=== PATIENT | male | born 1940 | race Caucasian/White ===

== ENCOUNTER 2016-06-18 18:13 | Observation (INO) | payer MEDICARE, OTHER ==
[~2016-06-18] VITALS: Ht 182.9 cm; Wt 129.2 kg
[2016-06-18] VITALS (8 sets, daily range): BP systolic 144–199; BP diastolic 76–93; PULSE 60–113; RESP 16–19; TEMP 96.6–97.8; O2SAT 94–100
[~2016-06-18 18:13] MED LIST: D32000CA PO; FURO1TAB93 PO; GLIP5 PO; GLUCTAB PO; LANO0.2510 PO; MECL25CH PO; METH500T3 PO; METO50TA PO; SIMV20 PO; TERA10CA3 PO; VENL-39 PO; VENTAER INH; WARF5TAB PO; ZOLP5TAB3 PO
[2016-06-18] MEDS ORDERED: ASPIRIN 81 MG CHEW TAB PO ONE (18:30)
[2016-06-18] MEDS ORDERED: GLIP5TAB8 PO (18:32)
[2016-06-18] MEDS ORDERED: MULT1CAP19 PO (18:32)
[2016-06-18] MEDS ORDERED: WARF-18 PO (18:32)
[2016-06-18] MEDS ORDERED: DIGO0.25 PO (18:32)
[2016-06-18] MEDS ORDERED: METF1000 PO (18:32)
[2016-06-18] MEDS ORDERED: SIMV40TA PO (18:32)
[2016-06-18] MEDS ORDERED: METO100T PO (18:32)
[2016-06-18] MEDS ORDERED: CHOL100025 CHEW (18:32)
[2016-06-18] MEDS ORDERED: WARF-23 PO (18:32)
[2016-06-18] MEDS ORDERED: VENL100T PO (18:32)
--- NOTE | 2016-06-18 18:41 | PD ---
HPI . Left neck pain Chief Complaint: Musculoskeletal Complaint Time Seen by Provider: 18:18 Travel History International Travel<30 days: No Contact w/Intl Traveler<30days: No Traveled to known affect area: No History of Present Illness HPI Patient presents with a three-day history of left neck pain. He states that it is keeping him from sleeping. Pain is exacerbated by movement of his head. Today, it radiated into his chest. He subsequently presented for evaluation following states he is chronically short of breath but is no different today been usual. He has not had any diaphoresis or nausea. PFSH Past Medical History Arthritis: Yes Atrial Fibrillation: Yes High Cholesterol: Yes Congestive Heart Failure: Yes (?) Cerebrovascular Accident: Yes (LFT SIDED DEFICITS) Diabetes: Yes Patient Takes Glucophage: Yes Genitourinary: Yes (BPH) Hypertension: Yes Immunizations Current: Yes Sleep Apnea: Yes (CPAP) Influenza Vaccination: Yes Past Surgical History Thoracic Surgery: Yes (1/3 LEFT LUNG REMOVED) Social History Alcohol Use: Yes (occ.) Tobacco Use: No Substance Use: No Allergies-Medications (Allergen,Severity, Reaction): Coded Allergies: No Known Allergies (Verified , 12/21/15) Reported Meds & Prescriptions Reported Meds & Active Scripts Active Reported Vitamin D3 (Cholecalciferol) 1,000 Unit Chew 1,000 Units CHEW DAILY Icaps Areds 2 (Multiple Vitamins W/ Minerals) 1 Cap Cap 1 Cap PO BID Glipizide 5 Mg Tab 5 Mg PO BIDAC Take 30 minutes before a meal Metoprolol Tartrate 100 Mg Tab 150 Mg PO BID Digoxin 0.25 Mg Tab 0.25 Mg PO DAILY Warfarin 5 Mg Tab 5 Mg PO SUN,SAT,FRI,,MICHAEL,F Warfarin 2.5 Mg Tab 2.5 Mg PO WED Effexor (Venlafaxine HCl) 100 Mg Tab 150 Mg PO DAILY Simvastatin 40 Mg Tab 40 Mg PO HS Metformin (Metformin HCl) 1,000 Mg Tab 1,000 Mg PO BIDPC With meals Review of Systems Except as stated in HPI: all other systems reviewed are Neg General / Constitutional: No: Fever, Chills Eyes: No: Blurred Vision Cardiovascular: Positive: Chest Pain or Discomfort Respiratory: Positive: Shortness of Breath (chronic shortness of breath) Gastrointestinal: No: Nausea, Vomiting Musculoskeletal: Positive: Myalgias Physical Exam Narrative GENERAL: Awake and alert and in no acute distress. SKIN: Warm and dry. HEAD: Atraumatic. Normocephalic. EYES: Pupils equal and round. ENT: No nasal bleeding or discharge. Mucous membranes pink and moist. NECK: Trachea midline. Tender along the left sternocleidomastoid muscle. This reproduces his pain. CARDIOVASCULAR: Irregular rhythm controlled rate. RESPIRATORY: No accessory muscle use. Lungs are clear with full air movement throughout. GASTROINTESTINAL: Abdomen soft, non-tender, nondistended. MUSCULOSKELETAL: No obvious deformities. No edema. NEUROLOGICAL: Awake and alert. No obvious cranial nerve deficits. Motor grossly within normal limits. Normal speech. PSYCHIATRIC: Appropriate mood and affect; insight and judgment normal. Data Data Last Documented VS Vital Signs Date Time Temp Pulse Resp B/P Pulse Ox O2 Delivery O2 Flow Rate FiO2 06/18/16 18:22 99 Room Air 06/18/16 18:16 97.8 60 16 160/88 Orders Basic Metabolic Panel (Bmp) (06/18/16 18:19) Ckmb (Isoenzyme) Profile (06/18/16 18:19) Complete Blood Count With Diff (06/18/16 18:19) Magnesium (Mg) (06/18/16 18:19) Prothrombin Time / Inr (Pt) (06/18/16 18:19) Act Partial Throm Time (Ptt) (06/18/16 18:19) Troponin I (06/18/16 18:19) Chest, Single Ap (06/18/16 18:19) Ecg Monitoring (06/18/16 18:19) Bilateral Bp Monitoring (06/18/16 18:19) Iv Access Insert/Monitor (06/18/16 18:19) Oximetry (06/18/16 18:19) Oxygen Administration (06/18/16 18:19) Aspirin Chew (Aspirin Chew) (06/18/16 18:30) Sodium Chloride 0.9% Flush (Ns Flush) (06/18/16 18:30) MDM Medical Decision Making Medical Screen Exam Complete: Yes Emergency Medical Condition: Yes Interpretation(s) EKG shows atrial fibrillation with no acute change. Differential Diagnosis Differential diagnosis includes musculoskeletal pain, angina, [place] Narrative Course Patient presents with left neck pain. It is most likely musculoskeletal. Pain is reproducible along the left sternocleidomastoid muscle. The care will be turned over to the oncoming physician pending his workup. Diagnosis Primary Impression: Neck pain on left side Winnie Walker MD Jun 18, 2016 18:41
[2016-06-18] MEDS: SODIUM CHLORIDE 0.9% FLUSH 5 ML FLUSH IVF PRN ×2 (18:43→19:15)
[2016-06-18] MEDS ORDERED: ONDANSETRON HCL 4 MG/2 ML VIAL IV PUSH ONE (18:45)
[2016-06-18] MEDS ORDERED: MORPHINE SULFATE 4 MG/ML INJ IV ONE (18:45)
[2016-06-18] MEDS ORDERED: LORazepam 2 MG/ML VIAL IV PUSH ONE (18:45)
[2016-06-18 18:48] LABS: AUTOMATED NEUTROPHIL # 5.4 TH/MM3 (1.8-7.7); BASOPHIL % 0.4 % (0.0-2.0); EOSINOPHIL # 0.2 TH/MM3 (0-0.4); EOSINOPHIL % 2.2 % (0.0-4.0); HEMATOCRIT 43.8 % (39.0-51.0); HEMO FLAGS DIFF FINAL; LYMPH % 20.7 % (9.0-44.0); LYMPHOCYTE # 1.6 TH/MM3 (1.0-4.8); MEAN CELL VOLUME 85.8 FL (80.0-100.0); MEAN CORPUSCULAR HEMOGLOBIN 27.6 PG (27.0-34.0); MEAN CORPUSCULAR HGB CONC 32.2 % (32.0-36.0); MONO % 8.4 % (0.0-8.0); NEUT % 68.3 % (16.0-70.0); PLATELET COUNT 198 TH/MM3 (150-450); RED BLOOD COUNT 5.11 MIL/MM3 (4.50-5.90); RED CELL DISTRIBUTION WIDTH 14.7 % (11.6-17.2); WHITE BLOOD COUNT 7.9 TH/MM3 (4.0-11.0)
[2016-06-18 18:59] LABS: CHLORIDE 106 MEQ/L (98-107); POTASSIUM 3.7 MEQ/L (3.5-5.1); SODIUM (NA) 144 MEQ/L (136-145)
[2016-06-18 19:02] LABS: ANION GAP 8 MEQ/L (5-15); BICARBONATE 29.8 MEQ/L (21.0-32.0); BLOOD UREA NITROGEN 12 MG/DL (7-18); INTERNATIONAL NORMALIZED RATIO 1.6 RATIO; MAGNESIUM 2.4 MG/DL (1.5-2.5); PROTHROMBIN TIME - PATIENT 17.6 SEC (9.8-11.6)
--- NOTE | 2016-06-18 19:05 | PD ---
Physical Exam Date Seen by Provider: Jun 18, 2016 Time Seen by Provider: 19:04 Narrative Accepted transfer of care from Dr. Walker Data Data Last Documented VS Vital Signs Date Time Temp Pulse Resp B/P Pulse Ox O2 Delivery O2 Flow Rate FiO2 06/18/16 19:20 75 18 163/80 95 Room Air 06/18/16 18:16 97.8 Orders Basic Metabolic Panel (Bmp) (06/18/16 18:19) Ckmb (Isoenzyme) Profile (06/18/16 18:19) Complete Blood Count With Diff (06/18/16 18:19) Magnesium (Mg) (06/18/16 18:19) Prothrombin Time / Inr (Pt) (06/18/16 18:19) Act Partial Throm Time (Ptt) (06/18/16 18:19) Troponin I (06/18/16 18:19) Chest, Single Ap (06/18/16 18:19) Ecg Monitoring (06/18/16 18:19) Bilateral Bp Monitoring (06/18/16 18:19) Iv Access Insert/Monitor (06/18/16 18:19) Oximetry (06/18/16 18:19) Oxygen Administration (06/18/16 18:19) Aspirin Chew (Aspirin Chew) (06/18/16 18:30) Sodium Chloride 0.9% Flush (Ns Flush) (06/18/16 18:30) Morphine Inj (Morphine Inj) (06/18/16 18:45) Ondansetron Inj (Zofran Inj) (06/18/16 18:45) Lorazepam Inj (Ativan Inj) (06/18/16 18:45) CKMB (06/18/16 18:43) CKMB% (06/18/16 18:43) Nitroglycerin Sl (Nitrostat Sl) (06/18/16 19:45) Sodium Chlor 0.9% 1000 Ml Inj (Ns 1000 M (06/18/16 19:45) Labs Laboratory Tests Test 06/18/16 18:43 White Blood Count 7.9 TH/MM3 Red Blood Count 5.11 MIL/MM3 Hemoglobin 14.1 GM/DL Hematocrit 43.8 % Mean Corpuscular Volume 85.8 FL Mean Corpuscular Hemoglobin 27.6 PG Mean Corpuscular Hemoglobin 32.2 % Concent Red Cell Distribution Width 14.7 % Platelet Count 198 TH/MM3 Mean Platelet Volume 8.5 FL Neutrophils (%) (Auto) 68.3 % Lymphocytes (%) (Auto) 20.7 % Monocytes (%) (Auto) 8.4 % Eosinophils (%) (Auto) 2.2 % Basophils (%) (Auto) 0.4 % Neutrophils # (Auto) 5.4 TH/MM3 Lymphocytes # (Auto) 1.6 TH/MM3 Monocytes # (Auto) 0.7 TH/MM3 Eosinophils # (Auto) 0.2 TH/MM3 Basophils # (Auto) 0.0 TH/MM3 CBC Comment DIFF FINAL Differential Comment Prothrombin Time 17.6 SEC Prothromb Time International 1.6 RATIO Ratio Activated Partial 31.0 SEC Thromboplast Time Sodium Level 144 MEQ/L Potassium Level 3.7 MEQ/L Chloride Level 106 MEQ/L Carbon Dioxide Level 29.8 MEQ/L Anion Gap 8 MEQ/L Blood Urea Nitrogen 12 MG/DL Creatinine 0.87 MG/DL Estimat Glomerular Filtration 86 ML/MIN Rate Random Glucose 111 MG/DL Calcium Level 9.2 MG/DL Magnesium Level 2.4 MG/DL Total Creatine Kinase 102 U/L Creatine Kinase MB 2.2 NG/ML Troponin I 0.04 NG/ML [facility] Medical Record Reviewed: Yes Supervised Visit with ELTON: No Interpretation(s) EKG: Atrial fibrillation controlled ventricular rate no acute ST elevation Last Impressions Chest X-Ray 06/18/161818 Signed Impressions: Service Date/Time: Saturday, June 18, 2016 19:07 - CONCLUSION: No evidence of acute cardiopulmonary disease. Tarik Nathan MD CBC & BMP Diagram 06/18/16 18:43 Troponin I: 0.04, not elevated INR: 1.6, subtherapeutic Differential Diagnosis Accepted transfer of care from Dr. Walker; please refer to her dictation Narrative Course Accepted transfer of care from Dr. Walker Patient reports that pain in his neck has decreased to 5/10 in intensity down from 10/10 in intensity; Chest pain 5/10 in intensity Physician Communication Physician Communication discussed with Dr Sellers for [facility] NURSE PRN Diagnosis Primary Impression: Chest pain Qualified Code: R07.2 - Precordial pain Additional Impressions: Neck pain on left side History of atrial fibrillation Admitting Information Admitting Physician Requests: Sharda Chawla MD Jun 18, 2016 19:05
[2016-06-18 19:06] LABS: GLOMERULAR FILTRATION RATE 86 ML/MIN (>89)
[2016-06-18 19:09] LABS: CREATINE KINASE 102 U/L (39-308)
[2016-06-18 19:21] LABS: CKMB 2.2 NG/ML (0.5-3.6)
--- NOTE | 2016-06-18 19:23 | RADHPO ---
EXAM DATE/TIME: 06/18/2016 19:07 [facility] COMPARISON: CHEST SINGLE AP, December 21, 2015, 12:42. INDICATIONS : Chest pain for 3 days. MEDICAL HISTORY : Cerebrovascular disease. Congestive heart failure. Diabetes mellitus type 2.Hypertension. SURGICAL HISTORY : None. ENCOUNTER: Initial ACUITY: 3 days PAIN SCORE: 5/10 LOCATION: Bilateral chest FINDINGS: No infiltrate, effusion or pneumothorax seen. Heart size stable, upper limits of normal. Thoracic aor ta is mildly tortuous. CONCLUSION: No evidence of acute cardiopulmonary disease. Tarik Nathan MD on June 18, 2016 at 19:21 Board Certified Radiologist. This report was verified electronically.
[2016-06-18] MEDS ORDERED: NITROGLYCERIN 0.4 MG SL 25 TABS/BTL SL ONE (19:45)
[2016-06-18] MEDS: SODIUM CHLOR 0.9% 1000 ML INJ 1,000 ML IV SCH (20:03)
[2016-06-18] MEDS ORDERED: HEPARIN-D5W INJ 250 ML IV SCH (20:15)
[2016-06-18] MEDS ORDERED: SODIUM CHLORIDE 0.9% FLUSH 5 ML FLUSH IVF PRN ×2 (20:15)
[2016-06-18] MEDS ORDERED: GLUCAGON 1 MG/ML VIAL OTHER PRN (20:15)
[2016-06-18] MEDS ORDERED: DEXTROSE 50% IN WATER 50 ML VIAL(D50) IV PUSH PRN (20:15)
[2016-06-18] MEDS: SODIUM CHLORIDE 0.9% FLUSH 5 ML FLUSH IVF SCH (20:47)
[2016-06-18] MEDS ORDERED: SODIUM CHLORIDE 0.9% FLUSH 5 ML FLUSH IVF SCH (21:00)
[2016-06-19 00:55] VITALS: O2SAT 97
[2016-06-19 03:21] LABS: APTT (PATIENT) 36.9 SEC (24.3-30.1)
[2016-06-19 04:00] VITALS: BP 149/84; PULSE 79; RESP 18; TEMP 96.5; O2SAT 96
[2016-06-19] MEDS ORDERED: ONDANSETRON HCL 4 MG/2 ML VIAL IV PRN (07:30)
[2016-06-19] MEDS ORDERED: ACETAMINOPHEN 500 MG CPLT PO PRN (07:30)
[2016-06-19] MEDS ORDERED: MORPHINE SULFATE 4 MG/ML INJ IV PRN (07:30)
[2016-06-19] MEDS ORDERED: NITROGLYCERIN 0.4 MG SL 25 TABS/BTL SL PRN (07:30)
[2016-06-19] MEDS ORDERED: ACETAMINOPHEN/HYDROcodone 325 MG/7.5 MG TAB PO PRN (07:30)
[2016-06-19 08:00] VITALS: BP 144/96; PULSE 76; RESP 16; TEMP 95.7; O2SAT 96
--- NOTE | 2016-06-19 08:35 | HHI.HP ---
[facility] Primary Care Physician [facility] Admission Diagnosis chest pain; (L) sternocleidomastoid muscle pain Diagnoses: (1) Neck pain on left side Diagnosis: Principal (2) Chest pain Diagnosis: Principal (3) Hypertensive urgency Diagnosis: Principal Chief Complaint: neck pain, chest pain Travel History International Travel<30 Days: No Contact w/Intl Traveler <30 Da: No Traveled to Known Affected Are: No History of Present Illness 76-year-old male with history of A. fib, hyperlipidemia, diabetes, hypertension, CVA, sleep apnea, BPH, and Agent Cascade exposure presents with complaint of left-sided neck pain as well as chest pain. Patient states he started to experience left-sided neck pain 3 days ago and it has been constant since then and has also had left shoulder pain. He denies any history of chronic neck pain and denies any history of recent injury or heavy lifting. The patient states yesterday he experienced left sided chest pain describing it as "stabbing" rating it a 10/10 stating it radiated to both sides of the sternum. He states it lasted a couple of hours until he received medication here in the ED. He admits to diaphoresis at that time stating he had to change his shirt. He denies any numbness or tingling. The patient states that he had shortness of breath on exertion this morning when he got up and asked for oxygen which provided relief, but later tells me this is chronic since his lobectomy. Denies any chest pain on exertion. Denies any abdominal pain, nausea , vomiting. The patient states that his neck and side of his head still hurt and his neck is stiff. He states he couldn't lay down and hurts when lying on his left shoulder. Patient admits to chronic leg swelling. He admits to a chill "a bit ago", but denies any fevers at home. He admits to runny nose he has had for 1 week as well as a sore throat for the past 3 days but denies any cough. He states his daughter and have been sick recently. He denies any dizziness, headache, blurred vision. Denies any history of DVT or PE, active cancer, hemoptysis, recent trauma/surgery/hospitalization in the last 3 months, recent immobilization of the legs, or recent sedentary travel. 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 He states his INR was checked 3-4 days ago and was "2.25". His last stress test was several years ago in [place]. He additionally states he has been urinating only a little bit every 2 hours and states he was prescribed prostate medication by his [facility] PCP but [facility]. He is scheduled to see his [facility] doctor next week. Review of Systems Constitutional: COMPLAINS OF: Diaphoretic episodes, DENIES: Fever Eyes: DENIES: Blurred vision Ears, nose, mouth, throat: COMPLAINS OF: Throat pain, Running Nose, DENIES: Ear Pain Respiratory: DENIES: Cough Cardiovascular: COMPLAINS OF: Chest pain, Dyspnea on Exertion (chronic) Gastrointestinal: DENIES: Abdominal pain, Black stools, Bloody stools, Nausea, Vomiting Genitourinary: DENIES: Dysuria Musculoskeletal: COMPLAINS OF: Joint pain, Neck pain Integumentary: DENIES: Rash Neurologic: DENIES: Headache, Paresthesias Denies bladder or bowel incontinence or saddle anesthesia Past Family Social History Past Medical History 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 Patient states his CPAP is broken currently. Arthritis "Spot" on left lung which is being monitored Agent Cascade exposure R ankle fracture during [place] Past Surgical History One third of left lung removed Reported Medications Vitamin D3 (Cholecalciferol) 1,000 Unit Chew 1,000 Units CHEW DAILY Icaps Areds 2 (Multiple Vitamins W/ Minerals) 1 Cap Cap 1 Cap PO BID Glipizide 5 Mg Tab 5 Mg PO BIDAC Take 30 minutes before a meal Metoprolol Tartrate 100 Mg Tab 150 Mg PO BID Digoxin 0.25 Mg Tab 0.25 Mg PO DAILY Warfarin 5 Mg Tab 5 Mg PO SUN,SAT,MON,TU,MICHAEL,F Warfarin 2.5 Mg Tab 2.5 Mg PO WED Effexor (Venlafaxine HCl) 100 Mg Tab 150 Mg PO DAILY Simvastatin 40 Mg Tab 40 Mg PO HS Metformin (Metformin HCl) 1,000 Mg Tab 1,000 Mg PO BIDPC With meals Allergies: Coded Allergies: No Known Allergies (Verified , 12/21/15) Family History Mother: Cancer; larynx removal; smoker. Father: Black lung from working in the coal mine. 2 brothers and 1 sister still living. No known familial heart disease. Social History Quit smoking cigarettes in 1988. Smoked one pack per day of cigarettes for 20 years. Patient drinks 1-2 glasses of wine every day although states he has not drank anything in the last 3 days. Denies history of illicit drug use. Physical Exam Vital Signs Vital Signs Date Time Temp Pulse Resp B/P Pulse Ox O2 Delivery O2 Flow Rate FiO2 06/19/16 04:00 96.5 79 18 149/84 96 06/19/16 00:55 97 21 06/18/16 22:21 96.6 70 19 150/93 97 06/18/16 22:00 82 16 144/76 96 Room Air 06/18/16 20:55 88 16 153/83 95 Room Air 06/18/16 20:14 113 18 170/90 94 Room Air 06/18/16 20:05 99 16 199/92 100 Room Air 06/18/16 19:20 75 18 163/80 95 Room Air 06/18/16 18:22 99 Room Air 06/18/16 18:22 99 Room Air 06/18/16 18:16 97.8 60 16 160/88 99 Physical Exam GENERAL: BMI 38.6. This is a well-nourished, well-developed patient, in no apparent distress. SKIN: No rashes, ecchymoses or lesions. Warm and dry. HEAD: Atraumatic. Normocephalic. ENT: Throat without erythema, tonsillar hypertrophy or exudate. Airway patent. NECK: Trachea midline. No lymphadenopathy. No tenderness to palpation over cervical spine. Tender over left sternocleidomastoid muscle, and trapezius muscles of left neck and shoulder. Limited lateral range of motion to the left. Good lateral range of motion to the right. CHEST: No reproducible chest tenderness. CARDIOVASCULAR: Normal rate with irregularly irregular rhythm without murmurs, gallops, or rubs. RESPIRATORY: Clear to auscultation. Breath sounds equal bilaterally. No wheezes , rales, or rhonchi. GASTROINTESTINAL: Abdomen soft, non-tender, nondistended. Reducible abdominal hernia noted. MUSCULOSKELETAL: 2+ bilateral distal radial pulses. No lower extremity edema or calf pain bilaterally. 2+ DP pulses bilaterally. NEUROLOGICAL: Awake and alert. Sensation grossly intact over bilateral hands and lower extremities. 5/5 strength R hand and B/L quadriceps. ~4/5 strength L hand, chronic. Motor grossly within normal limits. Normal speech. Laboratory Laboratory Tests Test 06/18/16 06/18/16 06/19/16 06/19/16 18:43 21:50 00:45 02:55 White Blood Count 7.9 Red Blood Count 5.11 Hemoglobin 14.1 Hematocrit 43.8 Mean Corpuscular Volume 85.8 Mean Corpuscular Hemoglobin 27.6 Mean Corpuscular Hemoglobin 32.2 Concent Red Cell Distribution Width 14.7 Platelet Count 198 Mean Platelet Volume 8.5 Neutrophils (%) (Auto) 68.3 Lymphocytes (%) (Auto) 20.7 Monocytes (%) (Auto) 8.4 Eosinophils (%) (Auto) 2.2 Basophils (%) (Auto) 0.4 Neutrophils # (Auto) 5.4 Lymphocytes # (Auto) 1.6 Monocytes # (Auto) 0.7 Eosinophils # (Auto) 0.2 Basophils # (Auto) 0.0 CBC Comment DIFF FINAL Differential Comment Prothrombin Time 17.6 Prothromb Time International 1.6 Ratio Activated Partial 31.0 36.9 Thromboplast Time Sodium Level 144 Potassium Level 3.7 Chloride Level 106 Carbon Dioxide Level 29.8 Anion Gap 8 Blood Urea Nitrogen 12 Creatinine 0.87 Estimat Glomerular Filtration 86 Rate Random Glucose 111 Calcium Level 9.2 Magnesium Level 2.4 Total Creatine Kinase 102 80 78 Creatine Kinase MB 2.2 Troponin I 0.04 0.04 0.04 Result Diagram: 06/18/16184206/18/161842 Imaging Last Impressions Chest X-Ray 06/18/161818 Signed Impressions: Service Date/Time: Saturday, June 18, 2016 19:07 - CONCLUSION: No evidence of acute cardiopulmonary disease. Tarik Nathan MD Assessment and Plan Assessment and Plan 76-year-old male with: Left-sided neck pain: Pain over the left sternocleidomastoid muscle as well as trapezius muscles of left neck and shoulder, but pain is primarily superior to the L clavicle between these muscles; limited motion to the left. Patient has pain when he lays on left shoulder. Patient has no bony tenderness over the cervical spine and no injuries reported. No emergent imaging needed. -1000 mg by mouth Robaxin now -Alternate ice and heat -Morphine alleviated pain from 10/10 to 0/10. Chest pain: Although patient experienced left-sided chest pain with diaphoresis , it is primarily atypical as it was stabbing for several hours. He admits to relief with medications in the ED but isn't sure which one as he received nitroglycerin, aspirin, morphine, and lorazepam in the ED. CP may be related to neck pain but there is no reproducible chest pain on exam and patient has several risk factors for heart disease including hyperlipidemia, hypertension, and diabetes. CK 3 normal. Troponin x 3 of 0.04. EKGs x 2 personally interpreted with atrial fibrillation with normal heart rate. Isolated T waves changes in aVL similar to prior EKG on 12/21/15. Chest x-ray personally interpreted with no acute abnormalities. -Telemetry -Continue 81 mg daily aspirin -Nitroglycerin/[place]/morphine prn pain -Oxygen as needed -Patient to undergo Lexiscan today. Nothing by mouth. Hypertensive urgency: Highest BP of 199/92, could be attributed to pain. -Continue medications as above. -Monitor A.Fib: Patient on warfarin. INR low at 1.6 last night, goal is between 2-3. Patient has been taking all his medications and is compliant with coumadin diet. Digoxin level normal. -Night physician started patient on heparin drip assuming because of subtherapeutic INR? Repeat INR 1.7 this morning. No indication for heparin drip. Resume warfarin. -Continue metoprolol and digoxin. HLD: Continue statin. Diabetes mellitus: BGL 111 in ED. -Hold metformin and glipizide for stress test. -Bedside Accu-Checks with low-dose sliding scale insulin. Hold SSI if patient NPO and BGL < 200. GI prophylaxis: Pepcid daily DVT prevention: on heparin Discharge disposition: Home in stable condition. Diet: Coumadin, heart healthy, diabetic diet. Activity: No heavy lifting or bending. Medications: Resume home medications. Patient later told me that he has muscle relaxants at home which he takes for his back and has been taking them. He requests short course of pain medication. Follow-up: Patient has appointment at NH on Wednesday 06/21 and he is advised to get his INR repeated at that time. Discussed Condition With patient Problem Qualifiers (1) Chest pain: Qualified Code: R07.2 - Precordial pain Suha Cortes Jun 19, 2016 08:35
[2016-06-19] MEDS ORDERED: METHOCARBAMOL 500 MG TAB PO ONE (08:45)
[2016-06-19] MEDS: SODIUM CHLOR 0.9% 1000 ML INJ 1,000 ML IV SCH (08:58)
[2016-06-19] MEDS ORDERED: MULTIVITAMINS/MINERALS THERAPEUTIC TAB PO SCH (09:00)
[2016-06-19] MEDS ORDERED: VENLAFAXINE HCL XR 75 MG CAP PO SCH (09:00)
[2016-06-19] MEDS ORDERED: CHOLECALCIFEROL (VIT D3) 1000 UNIT TAB PO SCH (09:00)
[2016-06-19] MEDS: SODIUM CHLORIDE 0.9% FLUSH 5 ML FLUSH IVF SCH (09:00)
[2016-06-19] MEDS ORDERED: DIGOXIN 0.25 MG TAB PO SCH (09:30)
[2016-06-19] MEDS ORDERED: METOPROLOL TARTRATE 50 MG TAB PO SCH (09:30)
[2016-06-19] MEDS ORDERED: FAMOTIDINE 20 MG TAB PO SCH (10:00)
[2016-06-19] MEDS ORDERED: REGADENOSON INJ 0.4 MG/5 ML SYR IV ONE (10:11)
[2016-06-19 10:15] LABS: APTT (PATIENT) 39.6 SEC (24.3-30.1); INTERNATIONAL NORMALIZED RATIO 1.7 RATIO; PROTHROMBIN TIME - PATIENT 18.8 SEC (9.8-11.6)
[2016-06-19] MEDS ORDERED: INSULIN ASPART SUPPLEMENTAL SCALE SQ SCH (11:00)
--- NOTE | 2016-06-19 11:42 | RADHPO ---
EXAM DATE/TIME: 06/19/2016 10:16 [facility] COMPARISON: No previous studies available for comparison. INDICATIONS : Left chest pain with shortness of breath for three days. Chest pain on Digoxin. Atrial fibrillation. DOSE: 34.8 mCi Tc99m Myoview at stress. 11.0 mCi Tc99m Myoview at rest. 0.4 mg Lexiscan STRESS SYMPTOMS: None noted. EJECTION FRACTION: 61% MEDICAL HISTORY : Hypertension. SURGICAL HISTORY : Lobectomy. ENCOUNTER: Initial ACUITY: 3 days PAIN SCALE: 5/10 LOCATION: Left chest TECHNIQUE: The patient underwent pharmacologic stress with infusion of prescribed dose. Continuous ECG tracing was monitored during stress. Gated SPECT imaging was performed after stress and conventional SPECT i maging was performed at rest. The examination was performed on a SPECT/CT scanner, both attenuation and non-corrected datasets were reviewed. FINDINGS: DISTRIBUTION: The maximum perfused segment at stress is in the anteroseptal wall. PERFUSION STUDY: The pattern of perfusion at stress is within normal limits. GATED STUDY: There is intact wall motion and thickening without hypokinetic or dyskinetic segments. CONCLUSION: Normal examination. RISK CATEGORY: Low (<1% Annual Mortality Rate) Tarik Paul MD on June 19, 2016 at 11:34 Board Certified Radiologist. This report was verified electronically.
[2016-06-19] MEDS ORDERED: WARFARIN SOD 2.5 MG TAB PO ONE ×2 (11:45→16:00)
[2016-06-19 12:00] VITALS: BP 162/102; PULSE 52; RESP 18; TEMP 96.1; O2SAT 96
--- NOTE | 2016-06-19 12:50 | HHI.DCPOC ---
Discharge Care Plan Diagnosis: (1) Neck pain on left side (2) Chest pain (3) Hypertensive urgency Your Health Problems Are: Chest Pain Goals to Promote Your Health * To prevent worsening of your condition and complications * To maintain your health at the optimal level Directions to Meet Your Goals Take your medications as prescribed Follow your dietary instruction Follow activity as directed Keep your appointments as scheduled Take your immunizations and boosters as scheduled If your symptoms worsen call your PCP, if no PCP go to Urgent Care Center or Emergency Room Smoking is Dangerous to Your Health. Avoid second hand smoke Call the 24-hour hour crisis hotline for domestic abuse at Suha Cortes Jun 19, 2016 12:50
[2016-06-19] MEDS ORDERED: HYDR-3580 PO (12:57)
--- NOTE | 2016-06-19 16:00 | TR ---
Date Performed: 06/19/2016 Time Performed: 10:26:30 DOCTOR: Colt Morrissey DRUG LIST: CLINICAL HISTORY: CHEST PAIN WITH DIGOXIN REASON FOR TEST: Chest pain WITH DIGOXIN REASON FOR ENDING: OBSERVATION: CONCLUSION: Lexiscan stress test was performed under standard four minute protocol. Radionuclid e was injected one minute prior to ending the test. No electrocardiographic abormalities were present to suggest ischemia. Nuclear imaging and interpretation are pending. COMMENTS:
[2016-06-19] MEDS ORDERED: PRAVASTATIN SOD 80 MG TAB PO SCH (21:00)
--- NOTE | 2016-06-19 22:04 | EKG ---
Date Performed: 06/19/2016 Time Performed: 00:53:48 PTAGE: 76 years EKG: Atrial fibrillation Lateral ST-T changes are nonspecific Low QRS voltages in limb leads Abn ormal ECG PREVIOUS TRACING : 06/18/2016 21.34 Compared to the previous tracing, rate slower DOCTOR: Tasha Zamora Interpretating Date/Time 06/19/2016 22:03:48
--- NOTE | 2016-06-19 22:15 | EKG ---
Date Performed: 06/18/2016 Time Performed: 21:34:26 PTAGE: 76 years EKG: Atrial fibrillation. Lateral ST-T changes are nonspecific Abnormal ECG PREVIOUS TRACING : 06/18/2016 18.17 Compared to prior tracing no significant change DOCTOR: Tasha Zamora Interpretating Date/Time 06/19/2016 22:14:21
--- NOTE | 2016-06-19 22:23 | EKG ---
Date Performed: 06/18/2016 Time Performed: 18:17:54 PTAGE: 76 years EKG: Atrial fibrillation Extensive ST-T changes are nonspecific Abnormal ECG PREVIOUS TRACING : 12/21/2015 12.33 Compared to prior tracing no significant change DOCTOR: Tasha Zamora Interpretating Date/Time 06/19/2016 22:20:59
== END 2016-06-19 14:03 | disposition home or self-care (01) ==
LOC: PHED 18:13 → PHEDA 20:04 → PH3B 22:22
PROVIDERS: ADMIT Hospitalist; ATTEND Hospitalist
DX: M54.2 Cervicalgia (principal); R07.2 Precordial pain; R06.02 Shortness of breath; I48.91 Unspecified atrial fibrillation; G47.30 Sleep apnea, unspecified; E11.9 Type 2 diabetes mellitus without complications; N40.0 Benign prostatic hyperplasia without lower urinary tract symptoms; I10 Essential (primary) hypertension; Z86.73 Personal history of transient ischemic attack (TIA), and cerebral infarction without residual deficits; I16.0 Hypertensive urgency; Z79.01 Long term (current) use of anticoagulants
CPT/HCPCS: 71010; 78452; 80048; 80162; 82550; 82552; 82948; 83735; 84484; 85025; 85610; 85730; 93005; 93017; 96374; 96375; 99285; A9502; G0378; J1610; J1644; J2060; J2270; J2405; J2785; J7030

== ENCOUNTER 2017-09-21 12:04 | Emergency (ER) | payer MEDICARE, OTHER ==
[~2017-09-21] VITALS: Ht 182.9 cm; Wt 117.6 kg
[~2017-09-21 12:04] MED LIST changes: +CHOL100025 CHEW; -D32000CA PO; +DIGO0.25 PO; -FURO1TAB93 PO; -GLIP5 PO; +GLIP5TAB8 PO; -GLUCTAB PO; +HYDR-3580 PO; -LANO0.2510 PO; -MECL25CH PO; +METF1000 PO; -METH500T3 PO; +METO100T PO; -METO50TA PO; +MULT1CAP19 PO; -SIMV20 PO; +SIMV40TA PO; -TERA10CA3 PO; -VENL-39 PO; +VENL100T PO; -VENTAER INH; +WARF-18 PO; +WARF-23 PO; -WARF5TAB PO; -ZOLP5TAB3 PO
[2017-09-21 12:14] VITALS: BP 155/64; PULSE 72; RESP 16; TEMP 97.6; O2SAT 97
[2017-09-21 12:43] LABS: BLOOD, URINE LARGE (NEG); GLUCOSE,URINE NEG (NEG); KETONE, URINE TRACE mg/dL (NEG); NITRITE,URINE NEG (NEG); URINE LEUKOCYTE ESTERASE NEG (NEG)
[2017-09-21] MEDS ORDERED: KETOROLAC TROMETHAMINE 30 MG/ML (IVP) VIAL IVP ONE (12:45)
[2017-09-21 12:46] LABS: BILIRUBIN, URINE NEG (NEG); URINE COLOR LIGHT-BROWN (YELLW/STRAW)
--- NOTE | 2017-09-21 12:46 | PD ---
HPI Chief Complaint: Flank/Kidney Pain Time Seen by Provider: 12:26 Travel History International Travel<30 days: No Contact w/Intl Traveler<30days: No Traveled to known affect area: No History of Present Illness HPI 77yo M with PMH of afib on digoxin and coumadin, HTN, BPH presents to the ED with c/o right flank pain radiating to right groin today. Said he was out mowing grass yesterday and then had dark urine. Also increased urinary frequency. Abdominal pain is intermittent. Denies any fever, chest pain, sob, n/v, diarrhea, focal weakness or numbness. PFSH Past Medical History Hx Anticoagulant Therapy: Yes (coumadin) Arthritis: Yes Atrial Fibrillation: Yes Anxiety: Yes Heart Rhythm Problems: Yes Cancer: Yes (RIGHT LUNG, REMOVED) Cardiovascular Problems: Yes (htn on meds) High Cholesterol: Yes Chest Pain: Yes Congestive Heart Failure: Yes (?) Cerebrovascular Accident: Yes (cva left side) Diabetes: Yes Patient Takes Glucophage: Yes Diminished Hearing: Yes Endocrine: Yes Genitourinary: Yes (BPH) Hypertension: Yes Musculoskeletal: Yes Neurologic: Yes Psychiatric: Yes Respiratory: Yes (copd) Immunizations Current: Yes Sleep Apnea: Yes (CPAP) Tetanus Vaccination: Unknown Past Surgical History Neurologic Surgery: No Thoracic Surgery: Yes (UPPER RIGHT LUNG REMOVED) Other Surgery: Yes Social History Alcohol Use: Yes (occ.) Tobacco Use: No Substance Use: No Allergies-Medications (Allergen,Severity, Reaction): Coded Allergies: No Known Allergies (Verified Adverse Reaction, Unknown, 09/21/17) Reported Meds & Prescriptions Reported Meds & Active Scripts Active Flomax (Tamsulosin HCl) 0.4 Mg Cap 0.4 Mg PO HS Reported Warfarin 5 Mg Tab 5 Mg PO MOTUWETHSASU Warfarin 7.5 Mg Tab 7.5 Mg PO FR Multiple Vitamin 1 Tab 1 Tab PO DAILY Preservision Areds (Multiple Vitamins W/ Minerals) 1 Tab 1 Tab PO DAILY Alfuzosin ER 24 HR 10 Mg Tab 10 Mg PO DAILY Finasteride 5 Mg Tab 5 Mg PO DAILY Do not crush. Metoprolol Tartrate 50 Mg Tab 50 Mg PO BID Simvastatin 20 Mg Tab 20 Mg PO DAILY Symbicort Inh (Budesonide/Formoterol Fumarate) 80-4.5 Mcg/Act Aero 1 Puff INH Q12HR Proair Hfa 8.5 GM Inh (Albuterol Sulfate) 90 Mcg/Act Aer 1 Puff INH Q4H PRN 108 mcg/actuation Combivent Respimat Inh (Ipratropium-Albuterol Inh) 20-100 Senior Living/Act Aero 1 Puff INH QID Vitamin D3 (Cholecalciferol) 1,000 Unit Chew 1,000 Units CHEW DAILY Digoxin 0.25 Mg Tab 0.25 Mg PO DAILY Effexor (Venlafaxine HCl) 100 Mg Tab 150 Mg PO DAILY Metformin (Metformin HCl) 1,000 Mg Tab 1,000 Mg PO BIDPC With meals Review of Systems Except as stated in HPI: all other systems reviewed are Neg Physical Exam Narrative GENERAL: 77yo M in mild distress. SKIN: Focused skin assessment warm/dry. HEAD: Atraumatic. Normocephalic. EYES: Pupils equal and round. No scleral icterus. No injection or drainage. ENT: No nasal bleeding or discharge. Mucous membranes pink and moist. NECK: Trachea midline. No JVD. CARDIOVASCULAR: Regular rate and rhythm. No murmur appreciated. RESPIRATORY: No accessory muscle use. Clear to auscultation. Breath sounds equal bilaterally. GASTROINTESTINAL: Abdomen soft, mild right flank ttp. No rebound tenderness or guarding. BACK: +CVA tenderness on right. MUSCULOSKELETAL: No obvious deformities. No clubbing. No cyanosis. No edema. NEUROLOGICAL: Awake and alert. No obvious cranial nerve deficits. Motor grossly within normal limits in all extremities. Sensation intact. Normal speech. PSYCHIATRIC: Appropriate mood and affect; insight and judgment normal. Data Data Last Documented VS Vital Signs Date Time Temp Pulse Resp B/P (MAP) Pulse Ox O2 Delivery O2 Flow Rate FiO2 09/21/17 14:01 09/21/17 13:50 68 18 99 Room Air 09/21/17 12:14 97.6 Orders Orders Urinalysis - C+S If Indicated (09/21/17 12:15) Complete Blood Count With Diff (09/21/17 12:37) Comprehensive Metabolic Panel (09/21/17 12:37) Lipase (09/21/17 12:37) Ct Abd/Pel W/O Iv Contrast (09/21/17 12:37) Ketorolac Inj (Toradol Inj) (09/21/17 12:45) Creatine Kinase (Cpk) (09/21/17 12:37) Digoxin (09/21/17 12:40) Prothrombin Time / Inr (Pt) (09/21/17 12:40) Act Partial Throm Time (Ptt) (09/21/17 12:40) Ed Discharge Order (09/21/17 13:59) Labs Laboratory Tests Test 09/21/17 12:27 09/21/17 12:50 Urine Collection Type VOIDED Urine Color LIGHT-BROWN Urine Turbidity SL CLOUDY Urine pH 6.0 Urine Specific Brandon 1.025 Urine Protein 100 mg/dL Urine Glucose (UA) NEG mg/dL Urine Ketones TRACE mg/dL Urine Occult Blood LARGE Urine Nitrite NEG Urine Bilirubin NEG Urine Urobilinogen 1.0 MG/DL Urine Leukocyte Esterase NEG Urine RBC INNUM /hpf Urine WBC 3-5 /hpf Urine Squamous Epithelial Cells 0-3 /hpf Urine Calcium Oxalate Crystals RARE /hpf Urine Bacteria FEW /hpf Urine Mucus RARE /lpf Microscopic Urinalysis Comment CULT NOT INDICATED White Blood Count 6.9 TH/MM3 Red Blood Count 4.90 MIL/MM3 Hemoglobin 13.6 GM/DL Hematocrit 41.6 % Mean Corpuscular Volume 84.9 FL Mean Corpuscular Hemoglobin 27.7 PG Mean Corpuscular Hemoglobin Concent 32.7 % Red Cell Distribution Width 14.1 % Platelet Count 170 TH/MM3 Mean Platelet Volume 8.5 FL Neutrophils (%) (Auto) 67.9 % Lymphocytes (%) (Auto) 20.8 % Monocytes (%) (Auto) 8.4 % Eosinophils (%) (Auto) 1.9 % Basophils (%) (Auto) 1.0 % Neutrophils # (Auto) 4.7 TH/MM3 Lymphocytes # (Auto) 1.4 TH/MM3 Monocytes # (Auto) 0.6 TH/MM3 Eosinophils # (Auto) 0.1 TH/MM3 Basophils # (Auto) 0.1 TH/MM3 CBC Comment DIFF FINAL Differential Comment Prothrombin Time 20.7 SEC Prothromb Time International Ratio 2.0 RATIO Activated Partial Thromboplast Time 34.8 SEC Blood Urea Nitrogen 19 MG/DL Creatinine 0.85 MG/DL Random Glucose 98 MG/DL Total Protein 6.9 GM/DL Albumin 3.7 GM/DL Calcium Level 9.2 MG/DL Alkaline Phosphatase 70 U/L Aspartate Amino Transf (AST/SGOT) 18 U/L Alanine Aminotransferase (ALT/SGPT) 25 U/L Total Bilirubin 0.6 MG/DL Sodium Level 140 MEQ/L Potassium Level 4.1 MEQ/L Chloride Level 104 MEQ/L Carbon Dioxide Level 29.6 MEQ/L Anion Gap 6 MEQ/L Estimat Glomerular Filtration Rate 88 ML/MIN Total Creatine Kinase 79 U/L Lipase 150 U/L Digoxin Level 0.9 NG/ML MDM Medical Decision Making Medical Screen Exam Complete: Yes Emergency Medical Condition: Yes Differential Diagnosis Pyelonephritis vs. nephrolithiasis vs. colitis vs. rhabdomyolysis Narrative Course 77yo M with right flank pain and dark urine. Labs reviewed, no leukocytosis. H /H normal. CPK normal at 79. Lipase normal. Creatinine normal. INR therapeutic at 2.0. Digoxin level therapeutic at 0.9. UA showed large blood. Rare calcium oxalate crystal. WBC 3-5. Culture not indicated. CT a/p showed no acute abnormality. Multiple bladder stones. Largest measures 13mm. Mild wall thickening involving urinary bladder without a discrete mass. Pt is well appearing and has no pain now. Pt also with no nausea. Return precautions given. Diagnosis Primary Impression: Bladder stones Referrals: Riky Moss MD call for appointment Patient Instructions: General Instructions Departure Forms: Tests/Procedures Additional Instructions: Please follow up with urology clinic as needed. Return to the ED if you have worsening pain, vomiting, fever or any other concerning symptoms. Med/Other Pt SpecificInfo: Prescription(s) given Scripts Tamsulosin (Flomax) 0.4 Mg Cap 0.4 MG PO HS for Manage Prostate Problems, #10 CAP 0 Refills Prov: Bina Mcmillan DO 09/21/17 Disposition: 01 DISCHARGE HOME Condition: Stable Bina Mcmillan DO September 21, 2017 12:46
[2017-09-21] MEDS ORDERED: OCUVTAB4 PO (12:49)
[2017-09-21] MEDS ORDERED: METO50TA PO (12:49)
[2017-09-21] MEDS ORDERED: SYMB80AE INH (12:49)
[2017-09-21] MEDS ORDERED: ALFU10TA2 PO (12:49)
[2017-09-21] MEDS ORDERED: SIMV20TA PO (12:49)
[2017-09-21] MEDS ORDERED: ALBUAER3 INH (12:49)
[2017-09-21] MEDS ORDERED: WARF-21 PO (12:49)
[2017-09-21] MEDS ORDERED: FINA5TAB2 PO (12:49)
[2017-09-21] MEDS ORDERED: IPRAAER INH (12:49)
[2017-09-21] MEDS ORDERED: MULTTAB67 PO (12:49)
[2017-09-21] MEDS ORDERED: WARF-23 PO (12:49)
[2017-09-21 12:57] LABS: AUTOMATED NEUTROPHIL # 4.7 TH/MM3 (1.8-7.7); BASOPHIL # 0.1 TH/MM3 (0-0.2); EOSINOPHIL # 0.1 TH/MM3 (0-0.4); EOSINOPHIL % 1.9 % (0.0-4.0); HEMATOCRIT 41.6 % (39.0-51.0); HEMOGLOBIN 13.6 GM/DL (13.0-17.0); LYMPH % 20.8 % (9.0-44.0); LYMPHOCYTE # 1.4 TH/MM3 (1.0-4.8); MEAN CELL VOLUME 84.9 FL (80.0-100.0); MEAN CORPUSCULAR HEMOGLOBIN 27.7 PG (27.0-34.0); MEAN CORPUSCULAR HGB CONC 32.7 % (32.0-36.0); MEAN PLATELET VOLUME 8.5 FL (7.0-11.0); MONO % 8.4 % (0.0-8.0); MONOCYTE # 0.6 TH/MM3 (0-0.9); NEUT % 67.9 % (16.0-70.0); PLATELET COUNT 170 TH/MM3 (150-450); RED CELL DISTRIBUTION WIDTH 14.1 % (11.6-17.2); WHITE BLOOD COUNT 6.9 TH/MM3 (4.0-11.0)
[2017-09-21 13:06] LABS: MUCUS URINE RARE /lpf (OCC); RBC, URINE INNUM /hpf (0-3)
[2017-09-21 13:07] LABS: BACTERIA, URINE FEW /hpf; CALCIUM OXALATE CRYSTALS,URINE RARE /hpf; SQUAMOUS EPITHELIAL CELL URINE 0-3 /hpf (0-5)
[2017-09-21 13:12] LABS: CHLORIDE 104 MEQ/L (98-107); SODIUM (NA) 140 MEQ/L (136-145)
[2017-09-21 13:16] LABS: CALCIUM 9.2 MG/DL (8.5-10.1)
[2017-09-21 13:17] LABS: ALBUMIN 3.7 GM/DL (3.4-5.0); BICARBONATE 29.6 MEQ/L (21.0-32.0); BLOOD UREA NITROGEN 19 MG/DL (7-18); GLUCOSE,RANDOM 98 MG/DL (74-106)
[2017-09-21 13:19] LABS: ALT (GPT) 25 U/L (12-78); AST (GOT) 18 U/L (15-37)
[2017-09-21 13:20] LABS: CREATININE 0.85 MG/DL (0.60-1.30); GLOMERULAR FILTRATION RATE 88 ML/MIN (>89)
[2017-09-21 13:21] LABS: PROTHROMBIN TIME - PATIENT 20.7 SEC (9.8-11.6); TOTAL BILIRUBIN ADULT 0.6 MG/DL (0.2-1.0); TOTAL PROTEIN 6.9 GM/DL (6.4-8.2)
[2017-09-21 13:22] LABS: ALKALINE PHOSPHATASE 70 U/L (45-117)
--- NOTE | 2017-09-21 13:33 | RADRPT ---
EXAM DATE: 09/21/2017 1:13 PM EDT AGE/SEX: 77 years / Male INDICATIONS: right flank pain and dark urine. CLINICAL DATA: This is the patient's initial encounter. Patient reports that signs and symptoms have been present for 3 days and indicates a pain score of 6/10. MEDICAL/SURGICAL HISTORY: Cerebrovascular disease. Carcinoma, lung. Chronic obstructive pulmo nary disease. Hypertension. Lobectomy. RADIATION DOSE: 23.39 CTDI (mGy) COMPARISON: None. TECHNIQUE: Multiple contiguous axial images were obtained through the abdomen. Images were obtained using multiple row detector helical technique. Using dose reduction techniques, radiation dose was ke pt as low as reasonably achievable to obtain optimal diagnostic quality images. FINDINGS: Lower Lungs: The visualized lower lungs are clear. Liver: The liver has a homogeneous density without space-occupying lesion. There is no dilation of th e biliary tree. Spleen: Homogeneous density without enlargement. Pancreas: Unremarkable without mass or calcification. Kidneys: Normal in size and shape. No evidence of mass or hydronephrosis. Adrenal Glands: Unremarkable. Aorta: Diffuse atherosclerotic plaque. No aneurysmal change.. Bowel/Mesentery: Scattered colonic diverticuli without acute inflammation. The bowel loops are gross ly unremarkable. The cecum and sigmoid colon have a normal configuration. Abdominal Wall: Intact. Retroperitoneum: No evidence of adenopathy in the retrocrural, para-aortic, or deep pelvic regions. Bladder: Multiple small bladder stones layering within the urinary bladder. There is a dominant ston e that measures 13 mm. There is mild thickening involving anterior wall the urinary bladder. No discr ete mass. Prostate is enlarged. Reproductive Organs: No abnormal masses or calcifications seen. Inguinal: The inguinal region is unremarkable without evidence of adenopathy. Bony Structures: A degenerative spine. CONCLUSION: 1. No acute abnormality. 2. Multiple bladder stones. The largest measures 13 mm. There is associated mild wall thickening inv olving the urinary bladder without a discrete mass. 3. Colonic diverticulosis without acute inflammation. Electronically signed by: Júnior Cotton MD 09/21/2017 1:32 PM EDT
[2017-09-21 13:50] VITALS: BP 123/66; PULSE 68; RESP 18; O2SAT 99
[2017-09-21] MEDS ORDERED: TAMS5CAP PO (13:59)
== END 2017-09-21 14:12 | disposition home or self-care (01) ==
LOC: PHED 12:04
DX: N21.0 Calculus in bladder (principal); K57.30 Diverticulosis of large intestine without perforation or abscess without bleeding; I48.91 Unspecified atrial fibrillation; F41.9 Anxiety disorder, unspecified; I11.0 Hypertensive heart disease with heart failure; I50.9 Heart failure, unspecified; E78.00 Pure hypercholesterolemia, unspecified; I69.30 Unspecified sequelae of cerebral infarction; J44.9 Chronic obstructive pulmonary disease, unspecified
CPT/HCPCS: 74176; 80053; 80162; 81001; 82550; 83690; 85025; 85610; 85730; 96374; 99284; J1885